=== PATIENT | female | born 1985 | race American Indian/Alaskan Native ===

== ENCOUNTER 2020-01-09 17:22 | Emergency (ER) | payer MEDICAID ==
[2020-01-09] MEDS ORDERED: SODIUM CHLORIDE 0.9% 1000 ML 1,000 ML IV ONE (18:02)
--- NOTE | 2020-01-09 18:20 | Emergency Department Report ---
HPI - General Chief Complaint: Syncope Time Seen by Provider: 01/09/20 17:37 - HPI HPI: 34-year-old -Swazi female presents to the emergency department by EMS after she passed out while waiting to get some food. She then woke up in the back of the ambulance. At the time of my examination the patient is awake and oriented, but drowsy or fatigued. She has the complaint of a posterior headache which is where she may have hit her head when she passed out. She did not receive anything for symptoms prior to presentation. She denies any recent alcohol or illicit drug use. She has a past medical history of anemia. No recent travel or sick contacts at home. ED Past Medical Hx - Past Medical History Previous Medical History?: Yes Hx Diabetes: Yes (gestational DM) Additional medical history: anemia - Surgical History Past Surgical History?: Yes Additional Surgical History: x3. IUD removal - Social History Smoking Status: Former Smoker Substance Use Type: Alcohol - Medications Home Medications: Home Medications Medication Instructions Recorded Confirmed Last Taken Type Ibuprofen [Motrin 600 MG tab] 600 mg PO Q8H PRN #20 tablet 01/09/20 Unknown Rx ED Review of Systems ROS: Stated complaint: FALL Other details as noted in HPI Comment: All other systems reviewed and negative Constitutional: weakness. denies: fever Eyes: denies: eye pain, vision change ENT: denies: ear pain, throat pain Respiratory: denies: cough, shortness of breath Cardiovascular: syncope. denies: chest pain, palpitations Gastrointestinal: denies: abdominal pain, vomiting Genitourinary: denies: dysuria, discharge Musculoskeletal: denies: back pain, arthralgia Skin: denies: rash, lesions Neurological: headache Physical Exam - Physical Exam Vital Signs: Vital Signs 01/09/20 01/09/20 01/09/20 17:30 17:42 17:45 Temperature 97.9 F Pulse Rate 76 78 76 Respiratory 8 L 9 L 13 Rate Blood Pressure 118/73 109/57 O2 Sat by Pulse 98 98 99 Oximetry Physical Exam: GENERAL: The patient is well-developed well-nourished. HENT: Normocephalic. Atraumatic. Patient has moist mucous membranes. EYES: Extraocular motions are intact. NECK: Supple. Trachea is midline. CHEST/LUNGS: Clear to auscultation. There is no respiratory distress noted. HEART/CARDIOVASCULAR: Regular. There is no tachycardia. ABDOMEN: Abdomen is soft, nontender. Patient has normal bowel sounds. SKIN: Skin is warm and dry. NEURO: The patient is awake, alert, and oriented. The patient is cooperative. The patient has no focal neurologic deficits. Normal speech. Cranial nerves II through XII grossly intact. No facial asymmetry. No pronator drift. No dysmetria. MUSCULOSKELETAL: There is no tenderness or deformity. There is no limitation range of motion. There is no evidence of acute injury. ED Course Vital Signs 01/09/20 01/09/20 01/09/20 17:30 17:42 17:45 Temperature 97.9 F Pulse Rate 76 78 76 Respiratory 8 L 9 L 13 Rate Blood Pressure 118/73 109/57 O2 Sat by Pulse 98 98 99 Oximetry ED Medical Decision Making - Lab Data Result diagrams: 01/09/20 19:10 01/09/20 18:20 - EKG Data -: EKG Interpreted by Ak EKG shows normal: sinus rhythm, axis, intervals, QRS complexes, ST-T waves Rate: normal - EKG Data When compared to previous EKG there are: previous EKG unavailable Interpretation: normal EKG - Radiology Data Radiology results: report reviewed CT HEAD WITHOUT CONTRAST INDICATION : Syncope, headache. TECHNIQUE: Axial, coronal and sagittal CT imaging was performed from the skull apex through the skull base without contrast. All CT scans at this location are performed using CT dose reduction for ALARA by means of automated exposure control. COMPARISON: None available. FINDINGS: PARENCHYMA: No mass, midline shift, hemorrhage, extraaxial collection or acute territorial infarction. VENTRICLES: Symmetric and normal in size. SOFT TISSUES: No significant abnormality of the included soft tissues/orbits. BONES: No acute osseous abnormality. SINUSES: No significant abnormality. ADDITIONAL FINDINGS: None. IMPRESSION: 1. No acute intracranial abnormality. - Medical Decision Making This patient presents to the emergency department after having a syncopal episode just prior to presentation. Since my initial evaluation the patient has been awake, alert, oriented and does not have any focal, motor or sensory deficits and her cranial nerves are intact. CT scan of the head did not show any acute bleed, shift, mass, ischemia, or any other acute process. EKG did not show any signs of ST elevation LA or dysrhythmia. Patient's labs have been unremarkable including CBC, metabolic panel, TSH, blood alcohol level and urine drug screen is only positive for marijuana. Her vital signs have been stable throughout her ED course. The patient has been reevaluated multiple times over multiple hours and there has been no further syncopal episodes or signs of any acute distress. Patient was seen ambulatory in the emergency department prior to discharge and both appears and feels stable. She appears safe for discharge home at this time and has been instructed to follow-up with a primary care physician in the next few days. She will return to the emergency department with any worsening of her symptoms or any acute distress. Critical Care Time: No Critical care attestation.: If time is entered above; I have spent that time in minutes in the direct care of this critically ill patient, excluding procedure time. ED Disposition Clinical Impression: Headache Qualifiers: Headache type: unspecified Headache chronicity pattern: unspecified pattern Intractability: not intractable Qualified Code(s): R51 - Headache Syncope Qualifiers: Syncope type: unspecified Qualified Code(s): R55 - Syncope and collapse Disposition: DC TO HOME OR SELFCARE Is pt being admited?: No Condition: Stable Instructions: Syncope (ED), Acute Headache (ED) Additional Instructions: Please follow-up with a primary care physician in the next few days. Return to the emergency department with any worsening of your symptoms or any acute d istress. Prescriptions: Ibuprofen [Motrin 600 MG tab] 600 mg PO Q8H PRN #20 tablet PRN Reason: Pain Referrals: AWILDA GIBSON NP [Primary Care Provider] - 2-3 Days Forms: Work/School Release Form(ED) Time of Disposition: 22:08
[2020-01-09 18:43] LABS: INR 1.07 (0.87-1.13)
[2020-01-09 18:55] LABS: Alanine Aminotransferase 25 units/L (7-56); Albumin 4.3 g/dL (3.9-5); BUN/Creatinine Ratio 14; Blood Urea Nitrogen 10 mg/dL (7-17); Calcium 9.1 mg/dL (8.4-10.2); Hemolysis Index 3
[2020-01-09 19:20] LABS: Basophils # (Auto) 0.1 K/mm3 (0.0-0.1); Basophils % (Auto) 0.3 % (0.0-1.8); Eosinophils % (Auto) 0.1 % (0.0-4.3); Hematocrit 35.3 % (30.3-42.9); Hemoglobin 11.1 gm/dl (10.1-14.3); Lymphocytes # (Auto) 1.5 K/mm3 (1.2-5.4); Lymphocytes % (Auto) 8.2 % (13.4-35.0); Mean Corpuscular HGB Conc 32 % (30-34); Mean Corpuscular Volume 71 fl (79-97); Monocytes # (Auto) 1.1 K/mm3 (0.0-0.8); Platelet Count 181 K/mm3 (140-440); Red Blood Count 4.94 M/mm3 (3.65-5.03); Red Cell Distribution Width 14.6 % (13.2-15.2)
--- NOTE | 2020-01-09 19:55 | Cat Scan Report ---
CT HEAD WITHOUT CONTRAST INDICATION : Syncope, headache. TECHNIQUE: Axial, coronal and sagittal CT imaging was performed from the skull apex through the skul l base without contrast. All CT scans at this location are performed using CT dose reduction for ALA RA by means of automated exposure control. COMPARISON: None available. FINDINGS: PARENCHYMA: No mass, midline shift, hemorrhage, extraaxial collection or acute territorial infarctio n. VENTRICLES: Symmetric and normal in size. SOFT TISSUES: No significant abnormality of the included soft tissues/orbits. BONES: No acute osseous abnormality. SINUSES: No significant abnormality. ADDITIONAL FINDINGS: None. IMPRESSION: 1. No acute intracranial abnormality. Signer Name: Ryan Fernandez MD Signed: 01/09/2020 7:50 PM Workstation Name: [id number]
[2020-01-09] MEDS ORDERED: ACETAMINOPHEN 325 MG TAB PO ONE (20:42)
[2020-01-09] MEDS ORDERED: KETOROLAC 30 MG/1 ML INJ IM ONE (20:43)
[2020-01-09 21:19] LABS: Bacteria,Urine 1+ /HPF (Negative); Bilirubin,Urine NEG (Negative); Blood,Urine NEG (Negative); Color,Urine Yellow (Yellow); Mucus,Urine FEW /HPF; Protein,Urine <15 mg/dL mg/dL (Negative); Urobilinogen,Urine < 2.0 mg/dL (<2.0)
[2020-01-09 21:26] LABS: Amphetamine Screen,Urine PRESUMPTIVE NEGATIVE; Benzodiazepines Screen,Urine PRESUMPTIVE NEGATIVE; Cocaine Screen,Urine PRESUMPTIVE NEGATIVE; Methadone Screen,Urine PRESUMPTIVE NEGATIVE; Opiate Screen,Urine PRESUMPTIVE NEGATIVE
[2020-01-09 21:50] LABS: Cannabinoid Screen,Urine PRESUMPTIVE POSITIVE
[2020-01-09 22:27] VITALS: BP 101/59
== END 2020-01-09 22:44 | disposition home or self-care (01) ==
LOC: ED 17:22
DX: R51 Headache (principal); R55 Syncope and collapse; E11.9 Type 2 diabetes mellitus without complications; Z87.891 Personal history of nicotine dependence; Z86.2 Personal history of diseases of the blood and blood-forming organs and certain disorders involving the immune mechanism; Z98.890 Other specified postprocedural states; Z79.899 Other long term (current) drug therapy
CPT/HCPCS: 36415; 70450; 80053; 80307; 81001; 82962; 84443; 84703; 85025; 85610; 93005; 93010; 96360; 96361; 96372; 99285; J1885; J7030; 80320; G0480

== ENCOUNTER 2020-04-06 21:54 | Emergency (ER) | payer MEDICAID ==
--- NOTE | 2020-04-06 23:13 | XRay Report ---
CHEST PA AND LATERAL VIEWS INDICATION: lisa. COMPARISON: None. FINDINGS: Support devices: None. Heart: Within normal limits. Lungs/Pleura: No acute pulmonary or pleural findings. IMPRESSION: 1. No acute findings. Signer Name: Tristan Rollins MD Signed: 04/06/2020 11:09 PM Workstation Name: [id number]
[2020-04-06 23:43] LABS: Basophils % (Auto) 0.3 % (0.0-1.8); Eosinophils # (Auto) 0.1 K/mm3 (0.0-0.4); Eosinophils % (Auto) 0.7 % (0.0-4.3); Hematocrit 38.9 % (30.3-42.9); Hemoglobin 12.4 gm/dl (10.1-14.3); Lymphocytes # (Auto) 2.1 K/mm3 (1.2-5.4); Lymphocytes % (Auto) 21.6 % (13.4-35.0); Mean Corpuscular HGB Conc 32 % (30-34); Mean Corpuscular Volume 71 fl (79-97); Monocytes # (Auto) 0.8 K/mm3 (0.0-0.8); Monocytes % (Auto) 8.3 % (0.0-7.3); Platelet Count 183 K/mm3 (140-440); Red Blood Count 5.46 M/mm3 (3.65-5.03); Red Cell Distribution Width 13.9 % (13.2-15.2)
[2020-04-07 00:07] LABS: Alanine Aminotransferase 25 units/L (7-56); Albumin 4.5 g/dL (3.9-5); BUN/Creatinine Ratio 16; Blood Urea Nitrogen 13 mg/dL (7-17); Calcium 9.4 mg/dL (8.4-10.2); Hemolysis Index 3
[2020-04-07] MEDS ORDERED: ONDANSETRON 4 MG/2 ML INJ IV ONE (00:19)
[2020-04-07] MEDS ORDERED: FAMOTIDINE 20 MG/2 ML INJ IV ONE (00:19)
[2020-04-07] MEDS ORDERED: ACETAMINOPHEN 500 MG TAB PO ONE (00:19)
[2020-04-07] MEDS ORDERED: dexAMETHasone 20 MG/5 ML VIAL IV ONE (00:19)
[2020-04-07] MEDS ORDERED: SODIUM CHLORIDE 0.9% 1000 ML 1,000 ML IV ONE (01:13)
[2020-04-07] MEDS ORDERED: SODIUM CHLORIDE 0.9% 1000 ML 1,000 ML ONE (01:15)
[2020-04-07 02:54] LABS: Bilirubin,Urine NEG (Negative); Blood,Urine NEG (Negative); Color,Urine Amber (Yellow); Mucus,Urine FEW /HPF; Protein,Urine <15 mg/dL mg/dL (Negative)
--- NOTE | 2020-04-07 03:12 | Emergency Department Report ---
ED General Adult HPI - General Chief complaint: Dyspnea/Respdistress Stated complaint: DIFFICULTY IN BREATHING Source: patient, EMS Mode of arrival: Wheelchair Limitations: No Limitations - History of Present Illness Initial comments: Patient is a 34-year-old -Congolese female with a history of anxiety, asthma and gestational diabetes who presents to the ED with acute onset persistent shortness of breath, persistent dry cough, nasal and sinus congestion and diffuse body aches and pains with intermittent nausea and vomiting, subjective fever of up to 101 F and lack of appetite with generalized weakness for the last 1 week. Patient states that she was recently diagnosed with COVID- 19 viral infection and that she is currently on 14-day quarantine but prior to arrival in the ED started having chest tightness, shortness of breath, tingling sensation in the upper and lower extremities bilaterally and persistent nausea and vomiting. Patient denies dizziness, chest pain, abdominal pain, diarrhea, change in vision, palpitations, back pain, vaginal bleeding, dysuria, urinary frequency and urgency, sore throat or syncope. MD Complaint: dyspnea, nasal and sinus congestion; cough -: Sudden, week(s) (1) Location: chest Radiation: non-radiation Severity scale (0 -10): 6 Quality: dull Consistency: intermittent Improves with: none Worsens with: none Associated Symptoms: denies other symptoms, cough, fever/chills, headaches, loss of appetite, malaise, nausea/vomiting, shortness of breath. denies: confusion, chest pain, diaphoresis, rash, seizure, syncope, weakness, other Treatments Prior to Arrival: none - Related Data Previous Rx's Medication Instructions Recorded Last Taken Type Ibuprofen [Motrin 600 MG tab] 600 mg PO Q8H PRN #20 tablet 01/09/20 Unknown Rx Albuterol Sulfate [Proventil Hfa] 1 - 2 puff IH Q6H PRN #1 hfa.aer.ad 04/07/20 Unknown Rx Azithromycin [Zithromax Z-ROBER] 250 mg PO DAILY #6 tablet 04/07/20 Unknown Rx Benzonatate [Tessalon Perles] 100 mg PO Q8HR #30 capsule 04/07/20 Unknown Rx Ondansetron [Zofran Odt] 4 mg PO Q6HR PRN #20 tab.rapdis 04/07/20 Unknown Rx hydrOXYzine PAMOATE [Vistaril] 25 mg PO Q6HR PRN #30 capsule 04/07/20 Unknown Rx Allergies Allergy/AdvReac Type Severity Reaction Status Date / Time No Known Allergies Allergy Verified 01/09/20 17:45 ED Review of Systems ROS: Stated complaint: DIFFICULTY IN BREATHING Other details as noted in HPI Constitutional: malaise, weakness. denies: chills, fever Eyes: denies: eye pain, eye discharge, vision change ENT: congestion. denies: ear pain, throat pain Respiratory: cough, shortness of breath. denies: wheezing Cardiovascular: chest pain (Chest tightness). denies: palpitations Endocrine: no symptoms reported Gastrointestinal: nausea, vomiting. denies: abdominal pain, diarrhea, co nstipation Genitourinary: denies: urgency, dysuria, discharge Musculoskeletal: arthralgia, myalgia. denies: back pain, joint swelling Skin: denies: rash, lesions Neurological: headache. denies: weakness, paresthesias Psychiatric: anxiety. denies: depression Hematological/Lymphatic: denies: easy bleeding, easy bruising ED Past Medical Hx - Past Medical History Hx Diabetes: Yes (gestational DM) Hx Asthma: Yes Additional medical history: anemia - Surgical History Additional Surgical History: x3. IUD removal - Social History Smoking Status: Never Smoker Substance Use Type: None - Medications Home Medications: Home Medications Medication Instructions Recorded Confirmed Last Taken Type Ibuprofen [Motrin 600 MG tab] 600 mg PO Q8H PRN #20 tablet 01/09/20 Unknown Rx Albuterol Sulfate [Proventil Hfa] 1 - 2 puff IH Q6H PRN #1 hfa.aer.ad 04/07/20 Unknown Rx Azithromycin [Zithromax Z-ROBER] 250 mg PO DAILY #6 tablet 04/07/20 Unknown Rx Benzonatate [Tessalon Perles] 100 mg PO Q8HR #30 capsule 04/07/20 Unknown Rx Ondansetron [Zofran Odt] 4 mg PO Q6HR PRN #20 tab.rapdis 04/07/20 Unknown Rx hydrOXYzine PAMOATE [Vistaril] 25 mg PO Q6HR PRN #30 capsule 04/07/20 Unknown Rx ED Physical Exam - General Limitations: No Limitations General appearance: alert, in no apparent distress, anxious - Head Head exam: Present: atraumatic, normocephalic, normal inspection - Eye Eye exam: Present: normal appearance, PERRL Pupils: Present: normal accommodation - ENT ENT exam: Present: normal orophraynx, mucous membranes moist, TM's normal bilaterally, normal external ear exam, other (Grossly congested nasal passages; palpable maxillary and frontal sinus tenderness) - Neck Neck exam: Present: normal inspection, full ROM. Absent: tenderness, meningismus, lymphadenopathy, thyromegaly - Respiratory Respiratory exam: Present: normal lung sounds bilaterally. Absent: respiratory distress, wheezes, rales, rhonchi, chest wall tenderness, accessory muscle use, decreased breath sounds - Cardiovascular Cardiovascular Exam: Present: normal rhythm, tachycardia, normal heart sounds. Absent: systolic murmur, diastolic murmur, rubs, gallop - GI/Abdominal GI/Abdominal exam: Present: soft, normal bowel sounds. Absent: tenderness, guarding, hyperactive bowel sounds, hypoactive bowel sounds, organomegaly - Extremities Exam Extremities exam: Present: normal inspection, full ROM, normal capillary refill - Back Exam Back exam: Present: normal inspection, full ROM. Absent: tenderness, CVA tende rness (R), muscle spasm, paraspinal tenderness, vertebral tenderness - Neurological Exam Neurological exam: Present: alert, oriented X3, CN II-XII intact, normal gait, reflexes normal - Psychiatric Psychiatric exam: Present: normal affect, anxious - Skin Skin exam: Present: warm, dry, intact, normal color. Absent: rash ED Course Vital Signs 04/06/20 22:18 Temperature 98.0 F Pulse Rate 108 H Respiratory 18 Rate Blood Pressure 149/89 O2 Sat by Pulse 100 Oximetry ED Medical Decision Making - Lab Data Result diagrams: 04/06/20 23:19 04/06/20 23:19 - Radiology Data Radiology results: report reviewed, image reviewed Findings [facility] [address] [place] [address] XRay Report Signed Patient: SVEN PRIDE MR#: [id number] : 1985 Acct:[id number] Age/Sex: 34 / F ADM Date: 04/06/20 Loc: ED Attending Dr: Ordering Physician: KARON LUTZ III, MD Date of Service: 04/06/20 Procedure(s): XR chest routine 2V Accession Number(s): [id number] cc: KARON LUTZ III, MD Fluoro Time In Minutes: CHEST PA AND LATERAL VIEWS INDICATION: lisa. COMPARISON: None. FINDINGS: Support devices: None. Heart: Within normal limits. Lungs/Pleura: No acute pulmonary or pleural findings. IMPRESSION: 1. No acute findings. Signer Name: Tristan Rollins MD Signed: 04/06/2020 11:09 PM Workstation Name: [id number] Transcribed By: JAMES Dictated By: Tristan Rollins MD Electronically Authenticated By: Tristan Rollins MD Signed Date/Time: 04/06/202308 DD/ 08 TD/TT: - Medical Decision Making This is a 34-year-old -Congolese female with a history of anxiety, asthma and gestational diabetes who presents to the ED with acute onset persistent shortness of breath, persistent dry cough, nasal and sinus congestion and diffuse body aches and pains with intermittent nausea and vomiting, subjective fever of up to 101 F and lack of appetite with generalized weakness for the last 1 week. Patient states that she was recently diagnosed with COVID-19 viral infection and that she is currently on 14-day quarantine but prior to arrival in the ED started having chest tightness, shortness of breath, tingling sensation in the upper and lower extremities bilaterally and persistent nausea and vomiting. In the ED, patient is alert and oriented x3 and is not in any distress but anxious and tachycardic in triage. Lab test results were reviewed and are all nonactionable including urinalysis. Chest x-ray shows no acute cardiopulmonary abnormalities or pneumonitis. Patient was treated in the ED with medications, also received normal saline 1 L IV bolus x1. On reevaluation, patient felt better and was discharged home on medications and advised to continue in self quarantine as previously advised for COVID-19 viral infection. Patient was advised to return to the ED immediately if symptoms get worse, otherwise follow-up with her primary care physician after her 14-day self quarantine is complete. - Differential Diagnosis pneumonia; anxiety; URI; Sinusitis; Covid-19 Critical care attestation.: If time is entered above; I have spent that time in minutes in the direct care of this critically ill patient, excluding procedure time. ED Disposition Clinical Impression: Acute non-recurrent frontal sinusitis, Anxiety as acute reaction to exceptional stress, Acute upper respiratory infection, Bronchitis due to COVID-19 virus, Nausea and vomiting in adult Disposition: DC-01 TO HOME OR SELFCARE Is pt being admited?: No Does the pt Need Aspirin: No Condition: Stable Instructions: Acute Bronchitis (ED), COVID-19, Acute Bacterial Rhinosinusitis (ED), Acute Nausea and Vomiting (ED) Additional Instructions: Continue to self quarantine as previously advised for COVID-19 viral infection. Take medications with food, drink plenty of fluids and follow-up with your primary care physician after 14-day quarantine is complete. Return to the ED immediately if symptoms get worse. Prescriptions: Albuterol Sulfate [Proventil Hfa] 1 - 2 puff IH Q6H PRN #1 hfa.aer.ad PRN Reason: Dyspnea Benzonatate [Tessalon Perles] 100 mg PO Q8HR #30 capsule hydrOXYzine PAMOATE [Vistaril] 25 mg PO Q6HR PRN #30 capsule PRN Reason: Anxiety Azithromycin [Zithromax Z-ROBER] 250 mg PO DAILY #6 tablet Ondansetron [Zofran Odt] 4 mg PO Q6HR PRN #20 tab.rapdis PRN Reason: Nausea Referrals: [facility] [Provider Group] - 7-10 days (FOLLOW UP AFTER THE 14 DAYS SELF QUARANTINE) Time of Disposition: 03:19 Print Language: AUSTRIAN
[2020-04-07 04:02] VITALS: BP 119/59
== END 2020-04-07 04:01 | disposition home or self-care (01) ==
LOC: ED 21:54
DX: J01.10 Acute frontal sinusitis, unspecified (principal); U07.1 COVID-19; J20.8 Acute bronchitis due to other specified organisms; F43.8 Other reactions to severe stress; F41.9 Anxiety disorder, unspecified; J45.909 Unspecified asthma, uncomplicated; Z86.2 Personal history of diseases of the blood and blood-forming organs and certain disorders involving the immune mechanism; Z98.890 Other specified postprocedural states
CPT/HCPCS: 36415; 71046; 80053; 81001; 84484; 84703; 85025; 96361; 96374; 96375; 99284; J1100; J2405; J7030